=== PATIENT | female | born 1945 | race Caucasian/White ===

== ENCOUNTER 2016-04-26 13:02 | Inpatient (IN) ==
--- NOTE | 2016-04-26 13:19 | Emergency Department Note ---
Disposition Clinical Impression: Pneumonia Qualifiers: Pneumonia type: due to unspecified organism Laterality: right Lung location: upper lobe of lung Qualified Code(s): J18.9 - Pneumonia, unspecified organism Anemia Qualifiers: Anemia type: unspecified type Qualified Code(s): D64.9 - Anemia, unspecified Disposition: Admitted As Inpatient Condition: Fair SOB HPI - General Chief Complaint: ED Shortness of Breath/Dyspnea Stated Complaint: short of breath Time Seen by Provider: 04/26/16 13:12 Source: patient, EMS Mode of arrival: EMS Limitations: no limitations Nursing Notes Reviewed: Yes Vital Signs Reviewed: Yes - History of Present Illness 70-year-old female history of CHF, COPD, diabetes presents for evaluation of shortness of breath. Patient states she has been feeling these symptoms for the past week associated with chest pain. Patient called a doctor in [place] who prescribed her amoxicillin. Patient states she is taking it as prescribed but reports that her symptoms are not resolving. Notes that she has had antibiotics without resolution. Daughter power of staff attorney noted that the patient's symptoms be gone on for at least a couple weeks. Patient called her primary care physician who prescribed her amoxicillin 500 mg twice a day for 10 days. Patient's symptoms continued not to resolve and escalated antibiotics to Augmentin. Patient states she has been taking antibiotics as prescribed and has 3 days left. Noted this morning that she is developed a productive brown black sputum and subjective fever and chills. Patient is concerned that she may be developing pneumonia and has a history of lung scarring from her pneumonias. Also notes that the patient has had home oxygen with 1 L but has not been on her home oxygen due to changing oxygen companies. Also notes recent ill contacts with similar symptoms. Pt Subjective Complaint: shortness of breath, cough, chest pain Onset (ago): week(s) Improves with: nothing Known history of: COPD, congestive heart failure, diabetes, recurrent pneumonia Associated symptoms: Reports: chest pain, fever, cough, sputum production - Related Data Home Medications Medication Instructions Recorded Confirmed Allopurinol [Zyloprim 300 MG] 300 mg PO DAILY 02/01/16 04/26/16 Amitriptyline [Elavil] 25 mg PO HS 02/01/16 04/26/16 Atorvastatin [Lipitor] 40 mg PO HS 02/01/16 04/26/16 Bisoprolol/HCTZ 10/6.25 [Ziac 1 tab PO DAILY 02/01/16 04/26/16 10/6.25] Cholecalciferol (D-3) [Vitamin D] 5,000 unit PO SA 02/01/16 04/26/16 Clopidogrel [Plavix] 75 mg PO DAILY 02/01/16 04/26/16 Glimepiride [Amaryl] 2 - 6 mg PO DAILY 02/01/16 04/26/16 Hydromorphone/Bupiv/0.9NACL/Pf 0 ml .ROUTE CONT #0 02/01/16 04/26/16 [Aleprstv-Hkucyt-Zh 20 Mcg-0.1%] Levothyroxine [Synthroid] 100 mcg PO QAM 02/01/16 04/26/16 Metformin [Glucophage] 500 mg PO BID 02/01/16 04/26/16 Morphine Sulfate SR (12 HR) [MS 15 mg PO Q12HR 02/01/16 04/26/16 Contin] Potassium 99 mg PO DAILY 02/01/16 04/26/16 Sennosides [Senna] 8.6 mg PO QPM PRN 02/01/16 04/26/16 Aspirin [Ecotrin] 325 mg PO DAILY 04/26/16 04/26/16 Diazepam [Valium] 10 mg PO TID 04/26/16 04/26/16 Esomeprazole Magnesium [Nexium] 40 mg PO DAILY 04/26/16 04/26/16 Furosemide [Lasix] 80 mg PO BID 04/26/16 04/26/16 Gabapentin [Neurontin] 300 mg PO TID 04/26/16 04/26/16 Previous Rx's Medication Instructions Recorded HYDROmorphone [Dilaudid] 4 mg PO Q6HR PRN #20 tablet 02/03/16 Allergies Allergy/AdvReac Type Severity Reaction Status Date / Time ciprofloxacin [From Cipro] Allergy Rash Verified 04/26/16 18:07 latex Allergy Anaphylaxis Verified 04/26/16 18:07 ibuprofen AdvReac See Verified 04/26/16 18:07 Comments All systems ED: reviewed and negative except as stated. Constitutional: Reports: as per HPI, fever Eyes: Reports: as per HPI ENT ED: Reports: as per HPI Cardiovascular: Reports: as per HPI, chest pain Respiratory: Reports: as per HPI, cough, dyspnea, sputum production Gastrointestinal: Reports: as per HPI Genitourinary: Reports: as per HPI Musculoskeletal: Reports: as per HPI Integumentary: Reports: as per HPI Neurological: Reports: as per HPI Psychiatric: Reports: as per HPI Endocrine: Reports: as per HPI Hematological/Lymphatic: Reports: as per HPI Allergic/Immunologic: Reports: as per HPI Past Medical History - Past Medical History Medical history: Reports: cancer, CHF, COPD, CVA, diabetes, hypertension, renal disease, thyroid disease, TIA, other Surgical history: Reports: appendectomy, hysterectomy, other (back surgery) Psychiatric history: Reports: no psych history - Social History Smoking Status: Never smoker Smokeless Tobacco Status: No Alcohol use: Reports: none Drug use: Reports: none Physical Exam - General Limitations: no limitations General appearance: alert, in no apparent distress, appears intoxicated - Head Head exam: normocephalic, normal inspection - Eye Eye exam: Present: normal appearance, EOMI - ENT ENT exam: normal exam, normal oropharynx, mucous membranes moist - Neck Neck exam: Present: normal inspection, trachea midline - Chest Chest inspection: Present: normal inspection, symmetric chest wall rise - Respiratory Respiratory exam: Present: other (Course [facility]). Absent: respiratory distress , accessory muscle use - Cardiovascular Cardiovascular exam: Present: regular rate, normal rhythm - Abdominal Exam Abdominal exam: Present: soft, Non-Tender. Absent: guarding, rebound - Extremities Exam Extremities exam: Present: normal inspection, pedal edema (trace pedal ) - Expanded Lower Extremity Exam Neurovascular/Tendon exam: Present: normal capillary refill, other (Wound of her left ankle and heel with dressing) - Back Exam Back exam: Present: normal inspection. Absent: CVA tenderness (R), CVA tenderness (L) - Neurological Exam Neurological exam: Present: alert - Skin Skin exam: Present: warm, dry, intact, normal color Course Course Narrative: Patient seen and examined. Patient is in no acute respiratory distress. Patient will get basic lab work, chest x-ray, one aerosol and reevaluation. 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 The daughter recently canceled her O2 provider. Time: 14:07 Reevaluation #2: Patient seen and examined. Patient's breathing improved following the nebulizer. Patient does appear to have right upper lobe infiltrate consistent with early pneumonia. Antibiotics ordered in the ER. Patient be treated for community-acquired pneumonia. Time: 14:30 Vital Signs Respiratory Rate 18 04/26/16 13:02 O2 Sat by Pulse Oximetry 98 04/26/16 13:02 Temperature 98.0 F 04/26/16 17:48 Pulse Rate 75 04/26/16 17:48 Respiratory Rate 17 04/26/16 17:48 Blood Pressure 92/49 04/26/16 17:48 O2 Sat by Pulse Oximetry 98 04/26/16 17:48 Oxygen Delivery Oxygen Delivery Nasal Cannula Shortness of Breath/Dyspnea - MDM Narrative Medical decision making narrative: 70-year-old female presents for evaluation shortness of breath. Patient has a history of COPD. Patient signs and symptoms are consistent with pneumonia. Patient was not in acute respiratory distress. Patient was given one aerosol which improved her breathing. Patient's chest x-ray shows early developing right upper lobe pneumonia. Patient is prescribed home oxygen but does not have home oxygen currently. Social work has been involved and states the patient's power of staff attorney is in the process of switching oxygen companies. Patient has been on to outpatient antibiotics without relief. Patient would benefit from hospitalization with IV antibiotics and further monitoring. This was discussed with the patient at bedside who agrees. IV antibiotics were ordered in the ER and is treated as community-acquired pneumonia. Patient does have difficulty with amnesia to do history of CVAs and much of the history was provided by patient's power of staff attorney. Otherwise the patient's labs reviewed. Notes that she is anemic slightly improved from baseline. Patient also has history of elevated creatinine based on prior labs. - Lab Data Lab results reviewed: Yes I reviewed the patient's lab results. Result diagrams: 04/26/16 13:33 04/26/16 13:33 Lab Results 04/26/16 04/26/16 04/26/16 Range/Units 13:33 13:33 13:33 WBC 7.6 (4.3-11.1) K/mcL RBC 4.27 (3.82-4.97) M/mcL Hgb 11.3 L (11.5-15.4) g/dL Hct 35.3 (35.3-44.9) % MCV 82.7 L (83.0-100.0) fL MCH 26.5 L (28.0-33.3) pg MCHC 32.0 (31.6-35.5) g/dL RDW 14.6 H (11.5-14.5) % Plt Count 160 (140-400) K/mcL MPV 11.0 (9.4-12.4) fL Immature Gran % 0.1 (0-4) % Seg Neutrophils % 67.1 % Lymphocytes % 22.0 % Monocytes % 7.4 % Eosinophils % 3.0 % Basophils % 0.4 % Neutrophils # 5.1 (1.6-8.9) K/mcL Lymphocytes # 1.7 (0.6-4.6) K/mcL Monocytes # 0.6 (0.0-1.3) K/mcL Eosinophils # 0.2 (0.0-0.6) K/mcL Basophils # 0.0 (0.0-0.2) K/mcL Sodium 140 (136-145) mEq/L Potassium 4.2 (3.5-4.5) mEq/L Chloride 102 (98-109) mEq/L Carbon Dioxide 29 (19-29) mEq/L BUN 11 (7-20) mg/dL Creatinine 1.24 H (0.57-1.11) mg/dL Est GFR ( Amer) 52 L (> 60) Est GFR (Non-Af Amer) 43 L (> 60) BUN/Creatinine Ratio 9 (6-26) Glucose 151 H (70-99) mg/dL Calculated Osmolality 292 (280-300) Lactic Acid (0.5-2.2) mmol/L Calcium 9.0 (8.6-10.8) mg/dL Troponin I 0.00 (0-0.03) ng/mL B-Natriuretic Peptide (0-100) pg/mL 04/26/16 04/26/16 Range/Units 13:33 13:43 WBC (4.3-11.1) K/mcL RBC (3.82-4.97) M/mcL Hgb (11.5-15.4) g/dL Hct (35.3-44.9) % MCV (83.0-100.0) fL MCH (28.0-33.3) pg MCHC (31.6-35.5) g/dL RDW (11.5-14.5) % Plt Count (140-400) K/mcL MPV (9.4-12.4) fL Immature Gran % (0-4) % Seg Neutrophils % % Lymphocytes % % Monocytes % % Eosinophils % % Basophils % % Neutrophils # (1.6-8.9) K/mcL Lymphocytes # (0.6-4.6) K/mcL Monocytes # (0.0-1.3) K/mcL Eosinophils # (0.0-0.6) K/mcL Basophils # (0.0-0.2) K/mcL Sodium (136-145) mEq/L Potassium (3.5-4.5) mEq/L Chloride (98-109) mEq/L Carbon Dioxide (19-29) mEq/L BUN (7-20) mg/dL Creatinine (0.57-1.11) mg/dL Est GFR ( Amer) (> 60) Est GFR (Non-Af Amer) (> 60) BUN/Creatinine Ratio (6-26) Glucose (70-99) mg/dL Calculated Osmolality (280-300) Lactic Acid 1.6 (0.5-2.2) mmol/L Calcium (8.6-10.8) mg/dL Troponin I (0-0.03) ng/mL B-Natriuretic Peptide 36 (0-100) pg/mL - Radiology Data Radiology results reviewed: Yes I reviewed the patient's radiology results. Chest X-Ray 04/26/16 13:15 IMPRESSION: 1. Hazy right upper lobe opacity may represent atelectasis versus developing pneumonia. Short-term follow-up radiographs recommended to ensure resolution. D/ / Faustina Kay MD / Faustina Kay MD Interpreting Provider: Faustina Kay MD - EKG Data EKG attestation: Yes I reviewed and interpreted this EKG. EKG shows normal: Reports: sinus rhythm Rate: Reports: normal Rhythm: Reports: NSR [place]/QRS: Reports: normal Interpretation: Reports: no acute changes S.B.A.R. - S.B.A.R. Situation: Demographics Background: Presenting Complaint Assessment: Vital Signs, Course and respsone to treatment, Patient/Family Expectation, Pertinant Lab Results Recommendation: Barrier(s) to disposition, Recommendation based on pending studies, treatments, or consults Jessy Report Given to: Dr. Rojelio Jiménez Repor Time: 14:40
[2016-04-26] MEDS ORDERED: Ipratropium/Albuterol Neb 3 ML IH ONE (13:39)
[2016-04-26 13:47] LABS: Basophils % 0.4 %; Eosinophils # 0.2 K/mcL (0.0-0.6); Hematocrit 35.3 % (35.3-44.9); Hemoglobin 11.3 g/dL (11.5-15.4); Immature Granulocytes % 0.1 % (0-4); Lymphocytes # 1.7 K/mcL (0.6-4.6); Mean Corpuscular Hemoglobin 26.5 pg (28.0-33.3); Mean Corpuscular Volume 82.7 fL (83.0-100.0); Monocytes # 0.6 K/mcL (0.0-1.3); Monocytes % 7.4 %; Neutrophils # 5.1 K/mcL (1.6-8.9); Platelet Count 160 K/mcL (140-400); Red Blood Count 4.27 M/mcL (3.82-4.97); Red Cell Distribution Width 14.6 % (11.5-14.5); Segmented Neutrophils % 67.1 %
[2016-04-26 13:58] LABS: Potassium 4.2 mEq/L (3.5-4.5)
[2016-04-26] MEDS ORDERED: Azithromycin 500 MG in D5% in Water 250 ML IVPB ONE (14:30)
--- NOTE | 2016-04-26 14:34 | Emergency Department Note ---
START Narrative - START START: I examined this patient and my medical decision-making was reviewed with the HOSPITAL ADMISSIONS CLERK/PA/Advanced Practice Nurse/Resident Physician. I agree with the documented findings, disposition and treatment plan as described except to the extent set forth below. ED attending note:I saw this Patient with the emergency medicine resident Dr. Vicente. Please see a copy of his note for details of the H&P, evaluation, management and disposition of this emergency Department patient. We independently had [id number] contact with the patient. Briefly: A 70-year-old halfway patient history of COPD increasing shortness of breath. When out of oxygen in her home environment for the past 2 days. Chest x-ray shows developing right upper lobe pneumonia. She had some mild wheezing. Troponin negative EKG no acute ischemic changes. Provided 45 minutes critical care service for this patient. Decision was made for admission. Awaiting hospitalist call back. Patient currently stable. She resident note for dispositional details.
[2016-04-26] MEDS ORDERED: Ondansetron 4 MG/2 ML VIAL IVP PRN (18:10)
[2016-04-26] MEDS ORDERED: Acetaminophen 325 MG TABLET PO PRN (18:10)
[2016-04-26] MEDS ORDERED: Naloxone 0.4 MG/ML INJ IVP PRN (18:10)
[2016-04-26] MEDS ORDERED: *HR* HYDROmorphone (PF) 1 MG/ML SYRINGE IVP PRN (18:13)
[2016-04-26] MEDS ORDERED: Sennosides 8.6 MG TABLET PO PRN (18:14)
[2016-04-26] MEDS: Ipratropium/Albuterol Neb 3 ML IH SCH (20:19)
[2016-04-26] MEDS ORDERED: *HR* Metformin 500 MG TABLET PO SCH (21:00)
[2016-04-26] MEDS ORDERED: Furosemide 40 MG TABLET PO SCH (21:00)
[2016-04-26] MEDS: Azithromycin 500 MG in D5% in Water 250 ML IVPB SCH (21:09)
[2016-04-26] MEDS: 0.9 % Sodium Chloride 1,000 ML IVC SCH (21:10)
[2016-04-26] MEDS: diazePAM 10 MG TABLET PO SCH (21:13)
[2016-04-26] MEDS: Gabapentin 300 MG CAPSULE PO SCH (21:13)
--- NOTE | 2016-04-26 22:42 | Internal Med History&Physical ---
Date of Encounter: 04/26/16 Time of Encounter: 17:30 Assessment and Plan (1) Pneumonia Current visit: Yes Status: Acute Patient noted to have hypoxia, chest x-ray shows right upper lobe infiltrate. IV hydration and IV antibiotics-Rocephin and Zithromax as she is noted to be allergic to fluoroquinolones. Follow-up blood cultures. Patient is hypoxic on room air, required supplemental oxygen at this time. Home oxygen evaluation prior to discharge. Qualifiers: Pneumonia type: due to unspecified organism Laterality: right Lung location: upper lobe of lung Qualified Code(s): J18.9 - Pneumonia, unspecified organism (2) COPD (chronic obstructive pulmonary disease) Current visit: Yes Status: Chronic Continue scheduled bronchodilators as patient is noted to have rhonchi. IV antibiotics as above. Supplemental oxygen. Patient has been on home oxygen in the past but could not afford it anymore. She recently changed insurance carrier and is currently eligible for oxygen according to her. Qualifiers: COPD type: unspecified COPD Qualified Code(s): J44.9 - Chronic obstructive pulmonary disease, unspecified (3) Fibromyalgia Current visit: Yes Status: Chronic Noted to be on oral long-acting morphine along with when necessary Dilaudid at home in addition to subcutaneous Dilaudid pain pump. She insists on receiving IV Dilaudid while in the hospital, we will order low-dose IV Dilaudid every 8 hourly when necessary. Continue to monitor closely. (4) Essential hypertension Current visit: Yes Status: Chronic (5) Diabetes mellitus Current visit: Yes Status: Chronic Accu-Chek blood glucose monitoring with basal bolus insulin regimen. Check hemoglobin A1c. Diabetic diet. Qualifiers: Diabetes mellitus type: type 2 Diabetes mellitus complication status: with kidney complications Diabetes mellitus complication detail: with chronic kidney disease Diabetes mellitus termite control technician insulin use: with termite control technician use Chronic kidney disease stage: stage 3 (moderate) Qualified Code(s): E11.22 - Type 2 diabetes mellitus with diabetic chronic kidney disease; N18.3 - Chronic kidney disease, stage 3 (moderate); Z79.4 - group home (current) use of insulin (6) Chronic pain Current visit: Yes Status: Chronic Qualifiers: Chronic pain type: chronic pain syndrome Qualified Code(s): G89.4 - Chronic pain syndrome (7) Chronic kidney disease Current visit: Yes Status: Chronic Hold diuretics, ALFONSO inhibitor for now. Continue to monitor serum creatinine closely. Qualifiers: Chronic kidney disease stage: stage 3 (moderate) Qualified Code(s): N18.3 - Chronic kidney disease, stage 3 (moderate) Internal Medicine - H&P: HPI Chief complaint: Throat pain, shortness of breath Admitted From: Emergency Dept Plans for Post Hospital Care: Home History of present illness: Ms. Moreno is a 70 year old female with multiple medical problems including fibromyalgia and chronic pain syndrome, presents with complaints of throat pain and shortness of breath since last night. Patient is very talkative. She reports not feeling well for the last few days but cannot give further details. She started having throat pain along with productive cough with grayish sputum since last night, got worse today along with subjective fever and chills. On further questioning, she also reports intermittent shortness of breath and pleuritic chest pain on coughing. She has malaise and generalized fatigue, worse than her baseline. She had several episodes of pneumonia in the past and so came in for evaluation. Patient is also very particular about complaints in regards to her chronic pain including left heel ulcer pain, chronic low back pain, fibromyalgia and generalized body aches. She insists on receiving IV Dilaudid for pain control in addition to oral long-acting morphine that she takes at home and subcutaneous pain pump. Past Med Surg Social Fam HX - Past Medical History Medical history: cancer, CHF, COPD, CVA, diabetes, hypertension, renal disease, thyroid disease, TIA, other Psychiatric history: anxiety, depression - Past Surgical History Surgical History: appendectomy, hysterectomy, other (back surgery) - Social History Smoking Status: Never smoker Smokeless Tobacco Status: No Alcohol use: none Drug use: none Occupational status: disabled Current living situation: Home, With Family Activity Level: Wheelchair bound Recent Out of Country Travel Within the Last 8 Weeks: No Exposure or Possible Exposure to Illness During Travel: No - Family History Mother Living Status: Hx Family Endocrine Disorder: Yes Internal Medicine - H&P: Meds Allopurinol [Zyloprim 300 MG] 300 mg PO DAILY 02/01/16 [History] Amitriptyline [Elavil] 25 mg PO HS 02/01/16 [History] Atorvastatin [Lipitor] 40 mg PO HS 02/01/16 [History] Bisoprolol/HCTZ 01/27.25 [Ziac 10/6.25] 1 tab PO DAILY 02/01/16 [History] Cholecalciferol (D-3) [Vitamin D] 5,000 unit PO SA 02/01/16 [History] Clopidogrel [Plavix] 75 mg PO DAILY 02/01/16 [History] Glimepiride [Amaryl] 2 - 6 mg PO DAILY 02/01/16 [History] Hydromorphone/Bupiv/0.9NACL/Pf [Olttarwx-Owdhyo-Ux 20 Mcg-0.1%] 0 ml .ROUTE CONT #0 02/01/16 [History] Levothyroxine [Synthroid] 100 mcg PO QAM 02/01/16 [History] Metformin [Glucophage] 500 mg PO BID 02/01/16 [History] Morphine Sulfate SR (12 HR) [MS Contin] 15 mg PO Q12HR 02/01/16 [History] Potassium 99 mg PO DAILY 02/01/16 [History] Sennosides [Senna] 8.6 mg PO QPM PRN 02/01/16 [History] HYDROmorphone [Dilaudid] 4 mg PO Q6HR PRN #20 tablet 02/03/16 [Rx] Aspirin [Ecotrin] 325 mg PO DAILY 04/26/16 [History] Diazepam [Valium] 10 mg PO TID 04/26/16 [History] Esomeprazole Magnesium [Nexium] 40 mg PO DAILY 04/26/16 [History] Furosemide [Lasix] 80 mg PO BID 04/26/16 [History] Gabapentin [Neurontin] 300 mg PO TID 04/26/16 [History] Allergies ciprofloxacin [From Cipro] Allergy (Verified 04/26/16 18:07) Rash latex Allergy (Verified 04/26/16 18:07) Anaphylaxis ibuprofen Adverse Reaction (Verified 04/26/16 18:07) See Comments "REACTS WITH OTHER MEDICATIONS" PER [facility] LAST APPT. All Systems PM: A 10-system review of systems was performed and is negative for pertinent findings except as documented above in the HPI. - Constitutional Constitutional: chills, fatigue, fever(s), lethargy - EENT Eyes: no change in vision, no discharge, no pain, no photophobia Ears: no ear discharge, no ear pain, no tinnitus Nose, mouth and throat: sore throat, no dysphagia, no nasal discharge, no neck pain - Cardiovascular Cardiovascular ROS IM: chest pain, dyspnea - Respiratory Respiratory: cough, dyspnea, chest congestion, excessive phlegm production, change in phlegm color, pain with cough - Gastrointestinal Gastrointestinal: no abdominal pain, no diarrhea, no hematemesis, no hematochezia, no melena, no nausea, no vomiting - Genitourinary Genitourinary: no change in urinary stream, no dysuria, no flank pain, no hematuria - Musculoskeletal Musculoskeletal ROS IM: no numbness, no tingling - Integumentary Integumentary IM: no rash, no unusual bruising - Neurological Neurological ROS: no confusion, no convulsions, no focal weakness, no numbness, no tingling, no tremor(s) - Hematologic/Lymphatic Hematologic/Lymphatic: no easy bruising - Constitutional Vitals: Temp Pulse Resp BP Pulse Ox 98 F 78 20 113/66 97 04/26/16 20:05 04/26/16 20:05 04/26/16 20:05 04/26/16 20:05 04/26/16 20:05 General appearance: Present: A&O X 3, obese, answers questions appropriately - Head Head exam: Present: atraumatic, normocephalic - Neck Neck exam general surgery: Present: supple, trachea midline. Absent: lymphadenopathy - Respiratory Respiratory exam: Present: rhonchi (Bilateral coarse breath sounds and diffuse rhonchi). Absent: accessory muscle use, rales, wheezes - Cardiovascular Cardiovascular exam: Present: RRR, +S1, +S2. Absent: diastolic murmur, gallop, rubs, systolic murmur - GI/Abdominal GI/Abdominal exam: Present: normal bowel sounds, soft, no peritoneal signs. Absent: distended, tenderness - Extremities Exam Extremities exam: Present: full ROM, warm, radial pulses palpable and symetrical. Absent: calf tenderness, cyanotic, pedal edema - Neurological Exam Neurological exam: Present: CN II-XII intact, oriented X3, no focal deficits, strengths equal and symetr throughout (Diffuse weakness bilateral lower extremities). Absent: pronater drift, facial droop, speech deficit - Skin Skin exam: Present: dry, intact Internal Med - H&P Results - Labs CBC & Chem 7: 04/27/16 03:21 04/27/16 03:21
[2016-04-27] MEDS: Ipratropium/Albuterol Neb 3 ML IH SCH ×7 (01:08→23:22)
[2016-04-27 04:00] LABS: Basophils % 0.6 %; Eosinophils # 0.3 K/mcL (0.0-0.6); Eosinophils % 5.5 %; Hematocrit 31.6 % (35.3-44.9); Immature Granulocytes % 0.2 % (0-4); Lymphocytes # 2.1 K/mcL (0.6-4.6); Lymphocytes % 43.5 %; Mean Corpuscular HGB Conc 30.7 g/dL (31.6-35.5); Mean Corpuscular Hemoglobin 25.9 pg (28.0-33.3); Mean Corpuscular Volume 84.5 fL (83.0-100.0); Mean Platelet Volume 11.1 fL (9.4-12.4); Monocytes # 0.5 K/mcL (0.0-1.3); Monocytes % 9.1 %; Platelet Count 144 K/mcL (140-400); Red Blood Count 3.74 M/mcL (3.82-4.97); Red Cell Distribution Width 14.6 % (11.5-14.5); Segmented Neutrophils % 41.1 %
[2016-04-27 04:07] LABS: Hemoglobin 9.7 g/dL (11.5-15.4)
[2016-04-27 04:18] LABS: Calcium 8.6 mg/dL (8.6-10.8); Potassium 3.5 mEq/L (3.5-4.5)
[2016-04-27] MEDS: *HR* Morphine Sulfate SR (12 HR) 15 MG TABLET.ER PO SCH ×2 (05:35→17:14)
[2016-04-27] MEDS: *HR* Heparin 5,000 UNIT/ML VIAL SQ SCH ×2 (05:35→17:18)
[2016-04-27] MEDS: Cholecalciferol (D-3) 1,000 UNIT TABLET PO SCH (08:40)
[2016-04-27] MEDS: Gabapentin 300 MG CAPSULE PO SCH ×3 (08:41→20:42)
[2016-04-27] MEDS: Aspirin Enteric Coated 325 MG Tablet PO SCH (08:41)
[2016-04-27] MEDS: diazePAM 10 MG TABLET PO SCH ×3 (08:41→20:42)
[2016-04-27] MEDS ORDERED: NON-FORMULARY MEDICATION 1 EACH EACH (Potassium [Potassium] 99 MG) PO SCH (09:00)
[2016-04-27] MEDS ORDERED: Bisoprolol/HCTZ 10/6.25 TABLET PO SCH (09:00)
--- NOTE | 2016-04-27 10:03 | Electrocardiograph Report ---
[facility] Test Date: 2016-04-26 Pat Name: Saida Moreno Department: 104 Room: 2A34 Gender: F Clinical Rehab Liaison: PAPO : 1945 Requested By: Axel Vicente Order Number: [id number] Reading MD: Vikas Albright MD Measurements Intervals [place] Rate: 76 P: 13 [place]: 203 QRS: -9 QRSD: 106 T: 7 QT: 403 QTc: 434 Interpretive Statements SINUS RHYTHM WITH SIGNIFICANT BASELINE ARTIFACT Electronically Signed On 04-27-16 10:02:37 EST by Vikas Albright MD
[2016-04-27] MEDS ORDERED: D5% in Water 1,000 ML IV PRN (10:59)
[2016-04-27] MEDS ORDERED: *HR* Dextrose 50 % in Water (Syg) 50 ML SYRINGE IVP PRN (10:59)
[2016-04-27] MEDS ORDERED: Dextrose Gel 15 GM PO PRN ×2 (10:59)
[2016-04-27] MEDS: Insulin LISPRO 300 UNITS/3 ML VIAL SQ SCH ×2 (11:40→16:57)
[2016-04-27] MEDS ORDERED: *HR* HYDROmorphone 2 MG TABLET PO PRN (13:12)
[2016-04-27] MEDS: 0.9 % Sodium Chloride 1,000 ML IVC SCH (13:58)
[2016-04-27] MEDS: Azithromycin 500 MG in D5% in Water 250 ML IVPB SCH (20:42)
[2016-04-27] MEDS ORDERED: Insulin LISPRO 300 UNITS/3 ML VIAL SQ SCH (21:00)
[2016-04-28] MEDS: Ipratropium/Albuterol Neb 3 ML IH SCH ×4 (04:13→16:03)
[2016-04-28] MEDS: *HR* Morphine Sulfate SR (12 HR) 15 MG TABLET.ER PO SCH ×2 (05:46→16:49)
[2016-04-28] MEDS: *HR* Heparin 5,000 UNIT/ML VIAL SQ SCH (05:46)
[2016-04-28] MEDS: 0.9 % Sodium Chloride 1,000 ML IVC SCH (05:56)
[2016-04-28 08:53] LABS: Basophils % 0.5 %; Eosinophils # 0.2 K/mcL (0.0-0.6); Eosinophils % 5.5 %; Hematocrit 30.2 % (35.3-44.9); Hemoglobin 9.3 g/dL (11.5-15.4); Immature Granulocytes % 0.3 % (0-4); Lymphocytes # 1.4 K/mcL (0.6-4.6); Lymphocytes % 35.2 %; Mean Corpuscular HGB Conc 30.8 g/dL (31.6-35.5); Mean Corpuscular Hemoglobin 26.1 pg (28.0-33.3); Mean Corpuscular Volume 84.6 fL (83.0-100.0); Mean Platelet Volume 10.2 fL (9.4-12.4); Monocytes # 0.4 K/mcL (0.0-1.3); Monocytes % 9.4 %; Neutrophils # 1.9 K/mcL (1.6-8.9); Platelet Count 123 K/mcL (140-400); Red Blood Count 3.57 M/mcL (3.82-4.97); Red Cell Distribution Width 14.6 % (11.5-14.5); Segmented Neutrophils % 49.1 %
[2016-04-28 09:05] LABS: BUN/Creatinine Ratio 11 (6-26); Blood Urea Nitrogen 11 mg/dL (7-20); Calcium 8.6 mg/dL (8.6-10.8); Carbon Dioxide 32 mEq/L (19-29); Chloride 104 mEq/L (98-109); Glucose 183 mg/dL (70-99); Osmolality,Calculated 296 (280-300); Potassium 3.8 mEq/L (3.5-4.5); Sodium 141 mEq/L (136-145); eGFR For African Americans > 60 (> 60); eGFR For Non-African Americans 52 (> 60)
[2016-04-28] MEDS: Cholecalciferol (D-3) 1,000 UNIT TABLET PO SCH (09:32)
[2016-04-28] MEDS: diazePAM 10 MG TABLET PO SCH ×2 (09:32→16:09)
[2016-04-28] MEDS: Aspirin Enteric Coated 325 MG Tablet PO SCH (09:32)
[2016-04-28] MEDS: Gabapentin 300 MG CAPSULE PO SCH ×2 (09:32→16:09)
[2016-04-28] MEDS: Insulin LISPRO 300 UNITS/3 ML VIAL SQ SCH ×2 (09:33→13:13)
--- NOTE | 2016-04-28 14:16 | Discharge Summary ---
Date of Encounter: 04/28/16 Time of Encounter: 14:12 - Discharge Diagnosis (1) Pneumonia Priority: Primary Status: Acute Qualifiers: Pneumonia type: due to unspecified organism Laterality: right Lung location: upper lobe of lung Qualified Code(s): J18.9 - Pneumonia, unspecified organism (2) COPD (chronic obstructive pulmonary disease) Priority: Secondary Status: Chronic Qualifiers: COPD type: unspecified COPD Qualified Code(s): J44.9 - Chronic obstructive pulmonary disease, unspecified (3) Chronic kidney disease Priority: Secondary Status: Chronic Qualifiers: Chronic kidney disease stage: stage 3 (moderate) Qualified Code(s): N18.3 - Chronic kidney disease, stage 3 (moderate) (4) Diabetes mellitus Priority: Secondary Status: Chronic Qualifiers: Diabetes mellitus type: type 2 Diabetes mellitus complication status: with kidney complications Diabetes mellitus complication detail: with chronic kidney disease Diabetes mellitus senior care insulin use: with senior care use Chronic kidney disease stage: stage 3 (moderate) Qualified Code(s): E11.22 - Type 2 diabetes mellitus with diabetic chronic kidney disease; N18.3 - Chronic kidney disease, stage 3 (moderate); Z79.4 - termite control servicer (current) use of insulin (5) Essential hypertension Priority: Secondary Status: Chronic (6) Fibromyalgia Priority: Secondary Status: Chronic - Discharge Medications Prescriptions: Amoxicillin/Clavulanate [Augmentin] 500 mg PO BIDWM #10 tablet Collagenase Oint [Santyl] 1 appl TP DAILY #2 gram Home Medications: Allopurinol [Zyloprim 300 MG] 300 mg PO DAILY 02/01/16 [History] Amitriptyline [Elavil] 25 mg PO HS 02/01/16 [History] Atorvastatin [Lipitor] 40 mg PO HS 02/01/16 [History] Bisoprolol/HCTZ 01/27.25 [Ziac 6.25] 1 tab PO DAILY 02/01/16 [History] Cholecalciferol (D-3) [Vitamin D] 5,000 unit PO SA 02/01/16 [History] Clopidogrel [Plavix] 75 mg PO DAILY 02/01/16 [History] Glimepiride [Amaryl] 2 - 6 mg PO DAILY 02/01/16 [History] Hydromorphone/Bupiv/0.9NACL/Pf [Hydromorp 20 Mcg-Bupiv 0.1%-Ns] 0 ml .ROUTE CONT #0 02/01/16 [History] Levothyroxine [Synthroid] 100 mcg PO QAM 02/01/16 [History] Metformin [Glucophage] 500 mg PO BID 02/01/16 [History] Morphine Sulfate SR (12 HR) [MS Contin] 15 mg PO Q12HR 02/01/16 [History] Potassium 99 mg PO DAILY 02/01/16 [History] Sennosides [Senna] 8.6 mg PO QPM PRN 02/01/16 [History] HYDROmorphone [Dilaudid] 4 mg PO Q6HR PRN #20 tablet 02/03/16 [Rx] Aspirin [Ecotrin] 325 mg PO DAILY 04/26/16 [History] Diazepam [Valium] 10 mg PO TID 04/26/16 [History] Esomeprazole Magnesium [Nexium] 40 mg PO DAILY 04/26/16 [History] Furosemide [Lasix] 80 mg PO BID 04/26/16 [History] Gabapentin [Neurontin] 300 mg PO TID 04/26/16 [History] Amoxicillin/Clavulanate [Augmentin] 500 mg PO BIDWM #10 tablet 04/28/16 [Rx] Collagenase Oint [Santyl] 1 appl TP DAILY #2 gram 04/28/16 [Rx] Allergies/Adverse Reactions: Allergies ciprofloxacin [From Cipro] Allergy (Verified 04/26/16 18:07) Rash latex Allergy (Verified 04/26/16 18:07) Anaphylaxis ibuprofen Adverse Reaction (Verified 04/26/16 18:07) See Comments "REACTS WITH OTHER MEDICATIONS" PER [facility] LAST APPT. Date of admission: 04/26/16 18:10 Primary care physician: PCP NO Consults: 04/27/16 15:36 Consult to Podiatry [CONS] Routine Consulting Provider: [facility] Reason for Consult: please evaluate for the ulcer on the left heel being evaluated by podiatry as OP.thank you Call Completed: Yes 04/28/16 10:17 Consult to Third [employer] [CONS] Routine Reason for SW Consult: [employer] 04/28/16 13:04 Consult to Occupational Therapy [CONS] Routine Comment: Evaluate, develop and implement POC Consult to Physical Therapy [CONS] Routine Comment: Evaluate, develop and implement POC Discharging clinician: Sandrine Mar Anticipated date of discharge: 04/28/16 - Patient Status Disposition: Home Health Service Condition: Fair Overall status at discharge: patient is back to baseline - Discharge Instructions Instructions: Chronic Obstructive Pulmonary Disease (DC) Follow Up With: Rodrick Alvarez MD [Non-Partnered Physician] - 05/05/16 10:30 am (please follow up as schedule..) - Diet and Activity Activity: resume usual activities as tolerated, wear oxygen at all times Diet: advance to your usual diet Interval History: Ms. Moreno is a 70 year old female with multiple medical problems including fibromyalgia and chronic pain syndrome, presents with complaints of throat pain and shortness of breath since last night. Patient is very talkative. She reports not feeling well for the last few days but cannot give further details. She started having throat pain along with productive cough with grayish sputum since last night, got worse today along with subjective fever and chills. On further questioning, she also reports intermittent shortness of breath and pleuritic chest pain on coughing. She has malaise and generalized fatigue, worse than her baseline. She had several episodes of pneumonia in the past and so came in for evaluation. Patient is also very particular about complaints in regards to her chronic pain including left heel ulcer pain, chronic low back pain, fibromyalgia and generalized body aches. She insists on receiving IV Dilaudid for pain control in addition to oral long-acting morphine that she takes at home and subcutaneous pain pump. Hospital course: Patient noted to have hypoxia, chest x-ray shows right upper lobe infiltrate. She was admitted for right upper lobe pneumonia with hypoxia. IV hydration and IV antibiotics-Rocephin and Zithromax as she is noted to be allergic to fluoroquinolones. She improved clinically and had antibiotics, blood cultures was negative. 6 minute walk test was done and she qualified for oxygen, she is being sent home on 2 L of nasal cannula. She will also be given supplies for wound care, she follows for her left heel ulcer with Dr. Sanchez as outpatient. She is being discharged today in stable condition on oral antibiotics. Time spent discussing smoking cessation with patient: more than 10 minutes - Time Spent with Patient Total time spent providing and/or coordinating discharge services: Greater than 30 minutes - Constitutional Vitals: Temp Pulse Resp BP Pulse Ox 97.8 F 82 22 111/50 97 04/28/16 11:21 04/28/16 11:21 04/28/16 11:21 04/28/16 11:21 04/28/16 12:12 General appearance: Present: A&O X 3, obese, answers questions appropriately Exam: General appearance: Present: A&O X 3, obese, answers questions appropriately - Head Head exam: Present: atraumatic, normocephalic - Neck Neck exam general surgery: Present: supple, trachea midline. Absent: lymphadenopathy - Respiratory Respiratory exam: Present: rhonchi (Bilateral coarse breath sounds and diffuse rhonchi). Absent: accessory muscle use, rales, wheezes - Cardiovascular Cardiovascular exam: Present: RRR, +S1, +S2. Absent: diastolic murmur, gallop, rubs, systolic murmur - GI/Abdominal GI/Abdominal exam: Present: normal bowel sounds, soft, no peritoneal signs. Absent: distended, tenderness - Extremities Exam Extremities exam: Present: full ROM, warm, radial pulses palpable and symetrical. Absent: calf tenderness, cyanotic, pedal edema - Neurological Exam Neurological exam: Present: CN II-XII intact, oriented X3, no focal deficits, strengths equal and symetr throughout (Diffuse weakness bilateral lower extremities). Absent: pronater drift, facial droop, speech deficit - Skin Skin exam: Present: dry, intact
--- NOTE | 2016-04-28 15:10 | Physician Discharge Referral ---
Home Health/Hosp Referral Info Transfer to: Home Health Attending Provider: damaris poole - Diagnosis (1) Pneumonia Status: Acute (2) COPD (chronic obstructive pulmonary disease) Status: Chronic (3) Chronic kidney disease Status: Chronic (4) Diabetes mellitus Status: Chronic (5) Essential hypertension Status: Chronic (6) Fibromyalgia Status: Chronic - Respiratory Orders Oxygen / L per min (2l) Smoking Cessation: Smoking cessation has been advised. For more information, call the [employer] Tobacco Quit Line at 5-647-ABWF-NOW. - Diet/Nutrition Diet/Nutrition Orders: No Concentrated Sweets - Activity Activity Orders: Ambulate - Services Needed Following services are medically necessary services: Nursing (wound care), Home Health Aide, Physical Therapy, Occupational Therapy - Transfer Medications Prescriptions: Amoxicillin/Clavulanate [Augmentin] 500 mg PO BIDWM #10 tablet Collagenase Oint [Santyl] 1 appl TP DAILY #2 gram Home Medications: Allopurinol [Zyloprim 300 MG] 300 mg PO DAILY 02/01/16 [History] Amitriptyline [Elavil] 25 mg PO HS 02/01/16 [History] Atorvastatin [Lipitor] 40 mg PO HS 02/01/16 [History] Bisoprolol/HCTZ 01/27.25 [Ziac 01/27.25] 1 tab PO DAILY 02/01/16 [History] Cholecalciferol (D-3) [Vitamin D] 5,000 unit PO SA 02/01/16 [History] Clopidogrel [Plavix] 75 mg PO DAILY 02/01/16 [History] Glimepiride [Amaryl] 2 - 6 mg PO DAILY 02/01/16 [History] Hydromorphone/Bupiv/0.9NACL/Pf [Hydromorp 20 Mcg-Bupiv 0.1%-Ns] 0 ml .ROUTE CONT #0 02/01/16 [History] Levothyroxine [Synthroid] 100 mcg PO QAM 02/01/16 [History] Metformin [Glucophage] 500 mg PO BID 02/01/16 [History] Morphine Sulfate SR (12 HR) [MS Contin] 15 mg PO Q12HR 02/01/16 [History] Potassium 99 mg PO DAILY 02/01/16 [History] Sennosides [Senna] 8.6 mg PO QPM PRN 02/01/16 [History] HYDROmorphone [Dilaudid] 4 mg PO Q6HR PRN #20 tablet 02/03/16 [Rx] Aspirin [Ecotrin] 325 mg PO DAILY 04/26/16 [History] Diazepam [Valium] 10 mg PO TID 04/26/16 [History] Esomeprazole Magnesium [Nexium] 40 mg PO DAILY 04/26/16 [History] Furosemide [Lasix] 80 mg PO BID 04/26/16 [History] Gabapentin [Neurontin] 300 mg PO TID 04/26/16 [History] Amoxicillin/Clavulanate [Augmentin] 500 mg PO BIDWM #10 tablet 04/28/16 [Rx] Collagenase Oint [Santyl] 1 appl TP DAILY #2 gram 04/28/16 [Rx] Allergies/Adverse Reactions: Allergies ciprofloxacin [From Cipro] Allergy (Verified 04/26/16 18:07) Rash latex Allergy (Verified 04/26/16 18:07) Anaphylaxis ibuprofen Adverse Reaction (Verified 04/26/16 18:07) See Comments "REACTS WITH OTHER MEDICATIONS" PER [facility] LAST APPT. Certification: Further, I certify that my clinical findings support that this patient is homebound (i.e. absences from home require considerable and taxing effort and are for medical reasons or gnosticist services or infrequently or short duration when for other reasons) because: Homebound Reason: Patient requires assistance of a person or device to safely leave home Attestation: My signature below is to certify that this patient is under my care and that I, or nurse practitioner, or a physician's retail sales assistant working with me, has a face-to -face encounter with this patient.
[2016-04-28 16:36] VITALS: BP 168/62
--- NOTE | 2016-04-28 18:01 | Internal Med Progress Note ---
Date of Encounter: 04/27/16 Time of Encounter: 17:58 - Assessment and plan (1) Pneumonia Status: Acute Assessment and plan: Will continue treatment as With IV antibiotics. Remains stable satting normal on 2 L of nasal cannula. Mild cough, we will continue Mucinex. Blood culture does not show any growth. No leukocytosis and remains afebrile. Qualifiers: Qualified Code(s): J18.9 - Pneumonia, unspecified organism (2) COPD (chronic obstructive pulmonary disease) Status: Chronic Assessment and plan: Not in exacerbation at this time. 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 Denies any complaints at this time, mild cough, saturating well with oxygen at 2 L. She also complains of left heel ulcer that she follows with Dr. Sanchez. - Constitutional Vitals: Temp Pulse Resp BP Pulse Ox 98.6 F 94 18 168/62 99 04/28/16 16:33 04/28/16 16:33 04/28/16 16:33 04/28/16 16:33 04/28/16 16:33 General appearance: Present: A&O X 3, obese, answers questions appropriately Exam: Neck supple. Chest bilateral clear, no added sounds. Serious S1-S2, no murmurs rubs or gallops. Abdomen soft, nontender, bowel sounds are present. Extremities no edema, left heel ulcer stage II, wrapped with college. Neurological no focal neuro deficits Internal Medicine: Result - Labs CBC & Chem 7: 04/28/16 08:46 04/28/16 08:46 Labs: Short CBC 04/28/16 Range/Units 08:46 WBC 3.8 L (4.3-11.1) K/mcL Hgb 9.3 L (11.5-15.4) g/dL Hct 30.2 L (35.3-44.9) % Plt Count 123 L (140-400) K/mcL Neutrophils # 1.9 (1.6-8.9) K/mcL BMP 04/28/16 08:46 Sodium 141 Potassium 3.8 Chloride 104 Carbon Dioxide 32 H BUN 11 Creatinine 1.04 Glucose 183 H Calcium 8.6 Consult Discharge Plan - Plan Instructions: Chronic Obstructive Pulmonary Disease (DC) Referrals: Rodrick Alvarez MD [Non-Partnered Physician] - 05/05/16 10:30 am (please follow up as schedule..) Prescriptions: Amoxicillin/Clavulanate [Augmentin] 500 mg PO BIDWM #10 tablet Collagenase Oint [Santyl] 1 appl TP DAILY #2 gram
== END 2016-04-28 16:51 | disposition home health service (06) | DRG 190 ==
LOC: EMEROO 13:02 → 2ANU 13:02
PROVIDERS: ADMIT Internal Medicine; ATTEND Internal Medicine Endocrinology, Diabetes & Metabolism